=== PATIENT | male | born 1945 | race Caucasian/White ===

== ENCOUNTER 2018-09-02 18:58 | Emergency (ER) | payer MEDICARE ==
[~2018-09-02] VITALS: Ht 165.1 cm; Wt 60.0 kg
[2018-09-02 19:00] VITALS: BP 125/59
[2018-09-02] MEDS ORDERED: METF-815 PO (19:06)
== END 2018-09-02 21:30 | disposition left against medical advice (07) ==
LOC: ER 18:58
DX: Z53.21 Procedure and treatment not carried out due to patient leaving prior to being seen by health care provider (principal)

== ENCOUNTER 2018-09-03 06:47 | Inpatient (IN) | payer MEDICARE, MEDICAID ==
[~2018-09-03] VITALS: Ht 165.1 cm; Wt 65.8 kg
[~2018-09-03 06:47] MED LIST: METF-815 PO
[2018-09-03] MEDS ORDERED: SODIUM CHLORIDE 0.9% 1,000 ML IV ONE (08:43)
[2018-09-03] MEDS ORDERED: VANCOMYCIN 1 G PREMIX 200 ML IV ONE (08:45)
[2018-09-03] MEDS ORDERED: PIPERACILLIN/TAZ 3.375G PREMIX 50 ML IV ONE (08:45)
[2018-09-03 09:20] LABS: HEMATOCRIT. 33.6 % (42.0-52.0); HEMOGLOBIN. 11.6 g/dL (14.0-18.0); MEAN CORPUSCULAR HEMOGLOBIN 30.8 pg (28.0-32.0); MEAN CORPUSCULAR VOLUME 89.5 fL (80.0-94.0); MEAN PLATELET VOLUME 7.3 fl (7.4-10.4); PLATELET 520 x1000/uL (130-400); RED BLOOD CELL COUNT 3.76 mill/uL (4.7-6.1); RED CELL DISTRIBUTION WIDTH 13.6 % (11.6-14.6)
[2018-09-03 09:23] LABS: INR 1.1; PROTHROMBIN TIME 11.2 sec (9.1-11.1)
[2018-09-03 09:59] LABS: PLATELET ESTIMATE INCREASED
[2018-09-03 10:33] LABS: CHLORIDE 97 mEq/L (98-107)
[2018-09-03 12:28] LABS: CLARITY URINE CLEAR (CLEAR); COLOR URINE YELLOW (YELLOW); KETONES URINE 1+ (NEGATIVE); LEUKOCYTE ESTERASE URINE NEGATIVE (NEGATIVE); NITRITE URINE NEGATIVE (NEGATIVE); OCCULT BLOOD URINE NEGATIVE (NEGATIVE); PROTEIN URINE TRACE (NEGATIVE); SPECIFIC GRAVITY URINE 1.021 (1.005-1.030); UROBILINOGEN URINE 0.2 E.U./dL (0.2-1.0)
[2018-09-03 12:30] VITALS: BP 104/48
[2018-09-03] MEDS ORDERED: CLONIDINE 0.1MG TABLET PO PRN (12:30)
[2018-09-03] MEDS ORDERED: ONDANSETRON HCL 4MG/2ML INJ IV PRN (12:30)
[2018-09-03] MEDS ORDERED: HYDROCODONE/ACETAMINOPHEN 5/325MG TABLET PO PRN (12:30)
[2018-09-03] MEDS ORDERED: MORPHINE SULFATE 2 MG/ML CPJ (NOT FOR IM USE) IV PRN (12:30)
[2018-09-03] MEDS ORDERED: NA PHOS,M-B/NA PHOS,DI-BA ENEMA 118ML PR PRN (12:30)
[2018-09-03] MEDS ORDERED: MAGNESIUM/ALUMINUM HYDROXIDE/SIMETHICONE 30ML UDC PO PRN (12:30)
[2018-09-03] MEDS ORDERED: DIPHENHYDRAMINE 50MG/ML VIAL IV PRN (12:30)
[2018-09-03] MEDS ORDERED: ACETAMINOPHEN 325MG TABLET PO PRN (12:45)
[2018-09-03] MEDS: LEVOFLOXACIN 500MG PREMIX 100 ML IV SCH (15:00)
[2018-09-03] MEDS: ENOXAPARIN 40MG/0.4ML SYR SUBCUT SCH (15:05)
[2018-09-03] MEDS: SODIUM CHLORIDE 0.45% 1,000 ML IV SCH (15:05)
[2018-09-03 16:00] VITALS: BP 119/59
[2018-09-03 20:00] VITALS: BP 96/50
[2018-09-03] MEDS ORDERED: DEXTROSE 50% WATER 50ML SYRINGE IV PRN (20:00)
[2018-09-03] MEDS: VANCOMYCIN 750 MG PREMIX 150 ML IV SCH (21:45)
[2018-09-03] MEDS: INSULIN LISPRO 100 UNITS/ML SUBCUT SCH (21:46)
[2018-09-03] MEDS: BLOOD SUGAR DIAGNOSTIC STRIP TEST SCH (21:46)
[2018-09-04] VITALS: BP 112/57
[2018-09-04 04:00] VITALS: BP 112/58
[2018-09-04] MEDS: INSULIN LISPRO 100 UNITS/ML SUBCUT SCH ×4 (06:56→21:02)
[2018-09-04] MEDS: BLOOD SUGAR DIAGNOSTIC STRIP TEST SCH ×4 (06:56→21:03)
[2018-09-04] MEDS: SODIUM CHLORIDE 0.45% 1,000 ML IV SCH (06:56)
[2018-09-04 08:00] VITALS: BP 104/52
[2018-09-04 08:00] LABS: HEMATOCRIT. 27.2 % (42.0-52.0); HEMOGLOBIN. 9.5 g/dL (14.0-18.0); MEAN CORPUSCULAR HEMOGLOBIN 30.7 pg (28.0-32.0); MEAN CORPUSCULAR VOLUME 88.3 fL (80.0-94.0); MEAN PLATELET VOLUME 7.4 fl (7.4-10.4); PLATELET 445 x1000/uL (130-400); RED BLOOD CELL COUNT 3.08 mill/uL (4.7-6.1); RED CELL DISTRIBUTION WIDTH 13.6 % (11.6-14.6)
[2018-09-04] MEDS: VANCOMYCIN 750 MG PREMIX 150 ML IV SCH ×2 (09:48→21:03)
[2018-09-04 11:03] LABS: CHLORIDE 101 mEq/L (98-107)
[2018-09-04 11:15] LABS: LDL CHOLESTEROL 65 mg/dL (5-100)
[2018-09-04 11:17] LABS: HDL CHOLESTEROL 29 mg/dL (40-59)
[2018-09-04 12:00] VITALS: BP 118/55
[2018-09-04] MEDS: ACETAMINOPHEN 325MG TABLET PO PRN (13:22)
[2018-09-04] MEDS: LEVOFLOXACIN 500MG PREMIX 100 ML IV SCH (13:51)
[2018-09-04] MEDS: ENOXAPARIN 40MG/0.4ML SYR SUBCUT SCH ×2 (13:51→13:59)
[2018-09-04 16:00] VITALS: BP 91/46
[2018-09-04 20:00] VITALS: BP 112/54
[2018-09-04 20:09] LABS: PLATELET ESTIMATE INCREASED
[2018-09-05] VITALS: BP 134/61
[2018-09-05 04:00] VITALS: BP 133/64
[2018-09-05] MEDS: SODIUM CHLORIDE 0.45% 1,000 ML IV SCH ×2 (04:18→14:50)
[2018-09-05] MEDS: BLOOD SUGAR DIAGNOSTIC STRIP TEST SCH ×4 (06:07→21:33)
[2018-09-05] MEDS ORDERED: BACITRACIN 50,000 UNITS/VIAL ONE ×2 (06:33→06:47)
[2018-09-05] MEDS ORDERED: BUPIVACAINE HCL/PF 0.25% (2.5MG/ML) 10ML ONE (06:33)
[2018-09-05] MEDS ORDERED: BACITRACIN 15GM TUBE TOP ONE (06:33)
[2018-09-05] MEDS ORDERED: NORMAL SALINE 0.9% 10 ML SYR ONE ×2 (06:33→06:47)
[2018-09-05] MEDS ORDERED: LIDOCAINE HCL 1% 20ML VIAL (Pyxis) INJ ONE (06:33)
[2018-09-05] MEDS: INSULIN LISPRO 100 UNITS/ML SUBCUT SCH ×4 (06:57→21:41)
[2018-09-05] MEDS ORDERED: PROPOFOL 200MG/20ML VIAL IV ONE (07:05)
[2018-09-05] MEDS ORDERED: LIDOCAINE HCL/PF 1% 10 MG/ML 5ML VIAL ONE (07:05)
[2018-09-05] MEDS ORDERED: DIPHENHYDRAMINE 50MG/ML VIAL ONE (07:33)
[2018-09-05 07:54] LABS: CHLORIDE 101 mEq/L (98-107)
[2018-09-05 07:56] LABS: BASOPHILS % 0.2 % (0.0-2.0); EOSINOPHILS % 0.3 % (0.0-5.0); HEMATOCRIT. 28.8 % (42.0-52.0); HEMOGLOBIN. 9.9 g/dL (14.0-18.0); LYMPHOCYTES % 8.5 % (20.0-50.0); MEAN CORPUSCULAR HEMOGLOBIN 30.5 pg (28.0-32.0); MEAN CORPUSCULAR VOLUME 88.7 fL (80.0-94.0); MEAN PLATELET VOLUME 7.6 fl (7.4-10.4); MONOCYTES % 7.4 % (2.0-8.0); NEUTROPHILS % 83.6 % (40.0-76.0); PLATELET 448 x1000/uL (130-400); RED BLOOD CELL COUNT 3.25 mill/uL (4.7-6.1); RED CELL DISTRIBUTION WIDTH 13.4 % (11.6-14.6)
[2018-09-05] MEDS ORDERED: FENTANYL CITRATE/PF 50MCG/ML 2ML VIAL ONE (08:17)
[2018-09-05] MEDS: VANCOMYCIN 750 MG PREMIX 150 ML IV SCH (10:27)
[2018-09-05] MEDS: ACETAMINOPHEN 325MG TABLET PO PRN (10:30)
[2018-09-05 12:00] VITALS: BP 114/60
[2018-09-05] MEDS: ENOXAPARIN 40MG/0.4ML SYR SUBCUT SCH (14:52)
[2018-09-05] MEDS: KETOROLAC 30MG/ML VIAL IV PRN (15:07)
[2018-09-05 16:00] VITALS: BP 90/44
[2018-09-05] MEDS ORDERED: LEVOFLOXACIN 500MG PREMIX 100 ML IV SCH (16:00)
[2018-09-05] MEDS: VANCOMYCIN 1250MG in DEXTROSE 5% WATER 250ML IV SCH (17:58)
[2018-09-05 20:00] VITALS: BP 102/46
[2018-09-06] VITALS: BP 110/45
[2018-09-06 04:00] VITALS: BP 121/64
[2018-09-06] MEDS: VANCOMYCIN 1250MG in DEXTROSE 5% WATER 250ML IV SCH ×2 (05:21→18:40)
[2018-09-06] MEDS: BLOOD SUGAR DIAGNOSTIC STRIP TEST SCH ×4 (06:13→21:29)
[2018-09-06] MEDS: INSULIN LISPRO 100 UNITS/ML SUBCUT SCH ×4 (06:20→21:40)
[2018-09-06 07:24] LABS: BASOPHILS % 0.2 % (0.0-2.0); EOSINOPHILS % 1.1 % (0.0-5.0); HEMATOCRIT. 27.9 % (42.0-52.0); HEMOGLOBIN. 9.3 g/dL (14.0-18.0); LYMPHOCYTES % 8.7 % (20.0-50.0); MEAN CORPUSCULAR HEMOGLOBIN 29.5 pg (28.0-32.0); MEAN CORPUSCULAR VOLUME 88.6 fL (80.0-94.0); MEAN PLATELET VOLUME 7.1 fl (7.4-10.4); MONOCYTES % 6.3 % (2.0-8.0); NEUTROPHILS % 83.7 % (40.0-76.0); PLATELET 419 x1000/uL (130-400); RED BLOOD CELL COUNT 3.15 mill/uL (4.7-6.1); RED CELL DISTRIBUTION WIDTH 13.6 % (11.6-14.6)
[2018-09-06 08:00] VITALS: BP 115/58
[2018-09-06 11:11] LABS: CHLORIDE 99 mEq/L (98-107)
[2018-09-06] MEDS: ENOXAPARIN 40MG/0.4ML SYR SUBCUT SCH (13:24)
[2018-09-06 16:00] VITALS: BP 113/55
[2018-09-06] MEDS ORDERED: TETANUS, DIPHTHERIA, PERTUSSIS VAC/PF 0.5ML (>7YR OLD) IM ONE (16:00)
[2018-09-06] MEDS: PIPERACILLIN/TAZ 3.375G PREMIX 50 ML IV SCH ×2 (17:55→23:36)
[2018-09-06] MEDS: DOCUSATE SODIUM 100MG CAPSULE PO PRN (18:09)
[2018-09-06] MEDS: SODIUM CHLORIDE 0.45% 1,000 ML IV SCH ×2 (18:11→21:29)
[2018-09-06 20:40] VITALS: BP 110/56
[2018-09-06 23:30] VITALS: BP 116/56
[2018-09-06] MEDS: KETOROLAC 30MG/ML VIAL IV PRN (23:31)
[2018-09-07 04:00] VITALS: BP 141/59
[2018-09-07] MEDS: PIPERACILLIN/TAZ 3.375G PREMIX 50 ML IV SCH ×3 (05:02→18:24)
[2018-09-07] MEDS: VANCOMYCIN 1250MG in DEXTROSE 5% WATER 250ML IV SCH ×2 (05:46→21:20)
[2018-09-07] MEDS: BLOOD SUGAR DIAGNOSTIC STRIP TEST SCH ×4 (06:19→21:59)
[2018-09-07] MEDS: INSULIN LISPRO 100 UNITS/ML SUBCUT SCH ×4 (06:26→22:09)
[2018-09-07 08:00] VITALS: BP 118/58
[2018-09-07] MEDS: SODIUM CHLORIDE 0.45% 1,000 ML IV SCH (11:44)
[2018-09-07 12:00] VITALS: BP 125/65
[2018-09-07] MEDS: ENOXAPARIN 40MG/0.4ML SYR SUBCUT SCH (14:34)
[2018-09-07 16:00] VITALS: BP 127/63
[2018-09-07] MEDS: METFORMIN HCL 500MG TABLET PO SCH (17:09)
[2018-09-07 20:00] VITALS: BP 106/52
[2018-09-08] VITALS (7 sets, daily range): BP systolic 98–130; BP diastolic 55–65
[2018-09-08] MEDS: ACETAMINOPHEN 325MG TABLET PO PRN (00:17)
[2018-09-08] MEDS: PIPERACILLIN/TAZ 3.375G PREMIX 50 ML IV SCH ×4 (00:17→17:12)
[2018-09-08 05:54] LABS: BASOPHILS % 0.6 % (0.0-2.0); EOSINOPHILS % 4.2 % (0.0-5.0); HEMATOCRIT. 26.2 % (42.0-52.0); HEMOGLOBIN. 9.2 g/dL (14.0-18.0); LYMPHOCYTES % 10.7 % (20.0-50.0); MEAN CORPUSCULAR VOLUME 88.3 fL (80.0-94.0); MEAN PLATELET VOLUME 7.3 fl (7.4-10.4); MONOCYTES % 9.3 % (2.0-8.0); NEUTROPHILS % 75.2 % (40.0-76.0); PLATELET 435 x1000/uL (130-400); RED BLOOD CELL COUNT 2.97 mill/uL (4.7-6.1); RED CELL DISTRIBUTION WIDTH 13.5 % (11.6-14.6)
[2018-09-08 06:34] LABS: CHLORIDE 100 mEq/L (98-107)
[2018-09-08] MEDS: METFORMIN HCL 500MG TABLET PO SCH ×2 (06:42→17:12)
[2018-09-08] MEDS: BLOOD SUGAR DIAGNOSTIC STRIP TEST SCH ×4 (06:42→20:41)
[2018-09-08] MEDS: VANCOMYCIN 1250MG in DEXTROSE 5% WATER 250ML IV SCH (06:42)
[2018-09-08] MEDS: INSULIN LISPRO 100 UNITS/ML SUBCUT SCH ×4 (06:48→20:41)
[2018-09-08 06:54] LABS: VANCOMYCIN TROUGH 26.8 ug/mL (5.0-10.0)
[2018-09-08] MEDS: SODIUM CHLORIDE 0.45% 1,000 ML IV SCH ×2 (07:02→13:12)
[2018-09-08] MEDS: ENOXAPARIN 40MG/0.4ML SYR SUBCUT SCH (13:12)
[2018-09-08] MEDS ORDERED: VANCOMYCIN 1 G PREMIX 200 ML IV SCH (22:00)
[2018-09-08] MEDS ORDERED: ZOLPIDEM TARTRATE 5MG TABLET PO PRN (22:00)
[2018-09-09] VITALS (7 sets, daily range): BP systolic 98–137; BP diastolic 50–80
[2018-09-09] MEDS: PIPERACILLIN/TAZ 3.375G PREMIX 50 ML IV SCH ×4 (00:58→18:13)
[2018-09-09] MEDS: SODIUM CHLORIDE 0.45% 1,000 ML IV SCH (05:25)
[2018-09-09] MEDS: INSULIN LISPRO 100 UNITS/ML SUBCUT SCH ×3 (07:15→18:11)
[2018-09-09] MEDS: BLOOD SUGAR DIAGNOSTIC STRIP TEST SCH ×3 (07:36→17:59)
[2018-09-09] MEDS: METFORMIN HCL 500MG TABLET PO SCH ×2 (09:22→18:09)
[2018-09-09] MEDS: DOCUSATE SODIUM 100MG CAPSULE PO PRN ×2 (09:22→18:09)
[2018-09-09] MEDS ORDERED: LIDOCAINE HCL 1% 20ML VIAL (Pyxis) INJ ONE (15:08)
[2018-09-09] MEDS: ENOXAPARIN 40MG/0.4ML SYR SUBCUT SCH (18:12)
== END 2018-09-09 21:15 | DRG 853 ==
LOC: ER 06:47 → 5WST 10:06 → ENRESERV 10:08 → EDBEDREQTM 10:10 → EDBEDREQ 10:10 → SUPCPDRO 12:15
PROVIDERS: ADMIT Hospitalist; ATTEND Hospitalist
PROC: 0HBNXZZ Excision of Left Foot Skin, External Approach (ICD-10-PCS; 2018-09-05)
PROC: 0Y6M0ZF Detachment at Right Foot, Partial 5th Ray, Open Approach (ICD-10-PCS; principal; 2018-09-05 07:00)
PROC: 02HV33Z Insertion of Infusion Device into Superior Vena Cava, Percutaneous Approach (ICD-10-PCS; 2018-09-09)
PROC: B548ZZA Ultrasonography of Superior Vena Cava, Guidance (ICD-10-PCS; 2018-09-09)
PROC: B5181ZA Fluoroscopy of Superior Vena Cava using Low Osmolar Contrast, Guidance (ICD-10-PCS; 2018-09-09)
DX: A41.9 Sepsis, unspecified organism (principal); E43 Unspecified severe protein-calorie malnutrition; L03.115 Cellulitis of right lower limb; M86.8X7 Other osteomyelitis, ankle and foot; L02.611 Cutaneous abscess of right foot; L97.519 Non-pressure chronic ulcer of other part of right foot with unspecified severity; L97.529 Non-pressure chronic ulcer of other part of left foot with unspecified severity; E11.319 Type 2 diabetes mellitus with unspecified diabetic retinopathy without macular edema; E11.42 Type 2 diabetes mellitus with diabetic polyneuropathy; E11.610 Type 2 diabetes mellitus with diabetic neuropathic arthropathy; E11.621 Type 2 diabetes mellitus with foot ulcer; E11.69 Type 2 diabetes mellitus with other specified complication; I10 Essential (primary) hypertension; I44.7 Left bundle-branch block, unspecified; L84 Corns and callosities; Z87.891 Personal history of nicotine dependence; Z89.411 Acquired absence of right great toe; Z79.84 Long term (current) use of oral hypoglycemic drugs; Z68.24 Body mass index [BMI] 24.0-24.9, adult
CPT/HCPCS: 36415; 36569; 71045; 73630; 73721; 76937; 77001; 80061; 80202; 82962; 83036; 83605; 83735; 83880; 84145; 84484; 85651; 86140; 87070; 87075; 87076; 87077; 87186; 88304; 88305; 88311; 90715; 93005; 93306; 93923; 93970; 99285; A4216; C1725; J1200; J1650; J1815; J1885; J1956; J2543; J2704; J3010; J3370; J3490; J7030; J7042; J7060